=== PATIENT | female | born 1995 | race Caucasian/White ===

== ENCOUNTER 2020-11-26 23:20 | Emergency (ER) | payer MEDICAID ==
[~2020-11-26] VITALS: Ht 167.6 cm; Wt 77.0 kg
[2020-11-27] MEDS ORDERED: IBUPROFEN 600MG TABLET PO ONE
[2020-11-27] MEDS ORDERED: IBUP-2029 MT (01:08)
[2020-11-27 01:15] VITALS: BP 132/70
== END 2020-11-27 01:20 | disposition home or self-care (01) ==
LOC: ER 23:37
DX: S60.222A Contusion of left hand, initial encounter (principal); R26.2 Difficulty in walking, not elsewhere classified; V49.49XA Driver injured in collision with other motor vehicles in traffic accident, initial encounter; Y93.89 Activity, other specified; Y92.488 Other paved roadways as the place of occurrence of the external cause; R03.0 Elevated blood-pressure reading, without diagnosis of hypertension
CPT/HCPCS: 73130; 81025; 99283